=== PATIENT | male | born 1970 | race African-American/Black ===

== ENCOUNTER 2018-11-25 03:52 | Emergency (ER) | payer SELFPAY ==
--- NOTE | 2018-11-25 03:58 | EDM.PDOC ---
<Robert Alonso - Last Filed: 11/25/18 06:48> ED HPI GENERAL MEDICAL PROBLEM - General Stated Complaint: POSSIBLE STROKE Time Seen by Provider: 11/25/18 03:58 Source of Information: Reports: Patient - History of Present Illness INITIAL COMMENTS - FREE TEXT/NARRATIVE: HISTORY AND PHYSICAL: History of present illness: [ Presents via EMS, EMS had called a stroke code-said felt he had left upper extremity weakness However on arrival there were was no physical findings weakness is with blood draws he was readily able to move in retaliation with full strength exhibited perfect purposeful movement when he was willing to move, at times had appeared delirious however would answer questions appropriately seemingly if he felt like responding to the question. His partner had called an ambulance as she was concerned as the patient has been acting like this since Friday proximately 48-72 hours . she has known him for a year and a half , he lives nearby her however is been staying at her house since Friday. She denies any history of illicit drug use or alcoholism does not know his chronic history her medications Patient will not provide a review of systems Review of systems: As per history of present illness and below otherwise all systems reviewed and negative. Past medical history: As per history of present illness and as reviewed below otherwise noncontributory. Surgical history: As per history of present illness and as reviewed below otherwise noncontributory. Social history: No reported history of drug or alcohol abuse. Family history: As per history of present illness and as reviewed below otherwise noncontributory. Physical exam: HEENT: Atraumatic, normocephalic, pupils reactive, negative for conjunctival pallor or scleral icterus, mucous membranes moist, throat clear, neck supple, nontender, trachea midline. No meningeal signs Lungs: Clear to auscultation, breath sounds equal bilaterally, chest nontender. Heart: S1S2, regular, negative for clicks, rubs, or JVD. Abdomen: Soft, nondistended, nontender. Negative for masses or hepatosplenomegaly. Negative for costovertebral tenderness. Pelvis: Stable nontender. Genitourinary: Deferred. Rectal: Deferred. Extremities: Atraumatic, negative for cords or calf pain. Neurovascular unremarkable. Neuro: Awake, alert, oriented. Cranial nerves II through XII unremarkable. Cerebellum unremarkable. Motor and sensory unremarkable throughout. Exam nonfocal. Glaucoma scale 15 Diagnostics: [CBC CMP UA with culture/ blood cultures 2/ lactic acid/influenza EKG Chest 1 view cT head no contrast CT abdomen pelvis no contrast ] Therapeutics: [ normal saline Regular insulin 10 units IV, followed by regular insulin [address] abdomen pelvis pending at this time patient will be signed out to follow CT abdomen, several labs are pending at this time, oncoming physician will redirect after 7 AM as well as final disposition: ] Impression: Fever [ dehydration hyperglycemia Renal insufficiency Hematuria-and urine dipstick Systemic inflammatory response syndrome ] Definitive disposition and diagnosis as appropriate pending reevaluation and review of above. denies pain Pain Score (Numeric/FACES): 0 - Related Data Allergies Allergy/AdvReac Type Severity Reaction Status Date / Time No Known Allergies Allergy Verified 11/25/18 04:20 Course - Vital Signs Last Recorded V/S: Last Vital Signs Temp 98.8 F 11/25/18 08:39 Pulse 102 H 11/25/18 09:28 Resp 15 11/25/18 09:28 BP 132/88 11/25/18 09:28 Pulse Ox 98 11/25/18 09:28 - Orders/Labs/Meds Orders: Active Orders 24 hr Category Date Time Status EKG Documentation Completion [RC] STAT Care 11/25/18 03:55 Active CULTURE BLOOD [BC] Stat Lab 11/25/18 04:00 Ordered CULTURE BLOOD [BC] Stat Lab 11/25/18 04:00 Ordered CULTURE URINE [RM] Stat Lab 11/25/18 05:25 Received OSMOLALITY - SERUM [REF] Stat Lab 11/25/18 04:00 Received OSMOLALITY - URINE Stat Lab 11/25/18 05:25 Received Blood Culture x2 Reflex Set [OM.PC] Stat Oth 11/25/18 03:55 Ordered Labs: Laboratory Tests 11/25/18 11/25/18 11/25/18 Range/Units 04:00 04:00 04:00 WBC 15.98 H (4.0-11.0) K/uL RBC 4.59 (4.50-5.90) M/uL Hgb 12.7 L (13.0-17.0) g/dL Hct 37.4 L (38.0-50.0) % MCV 81.5 (80.0-98.0) fL MCH 27.7 (27.0-32.0) pg MCHC 34.0 (31.0-37.0) g/dL RDW Std Deviation 38.8 (28.0-62.0) fl RDW Coeff of Jose Cruz 13 (11.0-15.0) % Plt Count 301 (150-400) K/uL MPV 12.00 (7.40-12.00) fL Neut % (Auto) 88.7 H (48.0-80.0) % Lymph % (Auto) 7.9 L (16.0-40.0) % [place] % (Auto) 3.3 (0.0-15.0) % Eos % (Auto) 0.0 (0.0-7.0) % Baso % (Auto) 0.1 (0.0-1.5) % Neut # (Auto) 14.2 H (1.4-5.7) K/uL Lymph # (Auto) 1.3 (0.6-2.4) K/uL [place] # (Auto) 0.5 (0.0-0.8) K/uL Eos # (Auto) 0.0 (0.0-0.7) K/uL Baso # (Auto) 0.0 (0.0-0.1) K/uL Nucleated RBC % 0.0 /100WBC Nucleated RBCs # 0 K/uL INR 0.99 ABG pH (7.35-7.45) ABG pCO2 (35-45) mmHG ABG pO2 (75-100) mmHG ABG HCO3 (22-26) mEq/L ABG Total CO2 ABG Base Excess (-2.0-2.0) Lactate 4.8 H (0.20-2.00) mmol/L Sodium (136-148) mmol/L Potassium (3.5-5.1) mmol/L Chloride (98-107) mmol/L Carbon Dioxide (21.0-32.0) mmol/L BUN (7.0-18.0) mg/dL Creatinine (0.8-1.3) mg/dL Est Cr Clr Drug Dosing Estimated GFR (MDRD) ml/min Glucose (74-106) mg/dL Calcium (8.5-10.1) mg/dL Total Bilirubin (0.2-1.0) mg/dL AST (15-37) IU/L ALT (14-63) IU/L Alkaline Phosphatase (46-116) U/L Creatine Kinase (26-308) U/L CK-MB (CK-2) (0-3.6) ng/mL Troponin I (0.000-0.056) ng/mL Total Protein (6.4-8.2) g/dL Albumin (3.4-5.0) g/dL Globulin (2.6-4.0) g/dL Albumin/Globulin Ratio (0.9-1.6) Lipase (73-393) U/L Urine Color Urine Appearance Urine pH (5.0-8.0) Ur Specific [place] (1.001-1.035) Urine Protein (NEGATIVE) mg/dL Urine Glucose (UA) (NEGATIVE) mg/dL Urine Ketones (NEGATIVE) mg/dL Urine Occult Blood (NEGATIVE) Urine Nitrite (NEGATIVE) Urine Bilirubin (NEGATIVE) Urine Urobilinogen (<2.0) EU/dL Ur Leukocyte Esterase (NEGATIVE) Urine RBC (0-2/HPF) Urine WBC (0-5/HPF) Ur Epithelial Cells (NONE-FEW) Urine Bacteria (NEGATIVE) Urine Opiates Screen (NEGATIVE) Ur Oxycodone Screen (NEGATIVE) Urine Methadone Screen (NEGATIVE) Ur Barbiturates Screen (NEGATIVE) Ur Phencyclidine Scrn (NEGATIVE) Ur Amphetamine Screen (NEGATIVE) U Methamphetamines Scrn (NEGATIVE) U Benzodiazepines Scrn (NEGATIVE) U Cocaine Metab Screen (NEGATIVE) U Marijuana (THC) Screen (NEGATIVE) Ethyl Alcohol mg/dL 11/25/18 11/25/18 11/25/18 Range/Units 04:35 05:10 05:10 WBC (4.0-11.0) K/uL RBC (4.50-5.90) M/uL Hgb (13.0-17.0) g/dL Hct (38.0-50.0) % MCV (80.0-98.0) fL MCH (27.0-32.0) pg MCHC (31.0-37.0) g/dL RDW Std Deviation (28.0-62.0) fl RDW Coeff of [place] (11.0-15.0) % Plt Count (150-400) K/uL MPV (7.40-12.00) fL Neut % (Auto) (48.0-80.0) % Lymph % (Auto) (16.0-40.0) % [place] % (Auto) (0.0-15.0) % Eos % (Auto) (0.0-7.0) % Baso % (Auto) (0.0-1.5) % Neut # (Auto) (1.4-5.7) K/uL Lymph # (Auto) (0.6-2.4) K/uL [place] # (Auto) (0.0-0.8) K/uL Eos # (Auto) (0.0-0.7) K/uL Baso # (Auto) (0.0-0.1) K/uL Nucleated RBC % /100WBC Nucleated RBCs # K/uL INR ABG pH 7.393 (7.35-7.45) ABG pCO2 40 (35-45) mmHG ABG pO2 43 L (75-100) mmHG ABG HCO3 24 (22-26) mEq/L ABG Total CO2 22.3 ABG Base Excess -0.5 (-2.0-2.0) Lactate (0.20-2.00) mmol/L Sodium 139 (136-148) mmol/L Potassium 4.3 (3.5-5.1) mmol/L Chloride 101 (98-107) mmol/L Carbon Dioxide 25.2 (21.0-32.0) mmol/L BUN 29 H (7.0-18.0) mg/dL Creatinine 1.7 H (0.8-1.3) mg/dL Est Cr Clr Drug Dosing TNP Estimated GFR (MDRD) 52.0 ml/min Glucose 370 H (74-106) mg/dL Calcium 9.3 (8.5-10.1) mg/dL Total Bilirubin 0.6 (0.2-1.0) mg/dL AST 14 L (15-37) IU/L ALT 14 (14-63) IU/L Alkaline Phosphatase 134 H (46-116) U/L Creatine Kinase 283 (26-308) U/L CK-MB (CK-2) 1.1 (0-3.6) ng/mL Troponin I < 0.050 (0.000-0.056) ng/mL Total Protein 7.5 (6.4-8.2) g/dL Albumin 3.0 L (3.4-5.0) g/dL Globulin 4.5 H (2.6-4.0) g/dL Albumin/Globulin Ratio 0.7 L (0.9-1.6) Lipase 155 (73-393) U/L Urine Color Urine Appearance Urine pH (5.0-8.0) Ur Specific [place] (1.001-1.035) Urine Protein (NEGATIVE) mg/dL Urine Glucose (UA) (NEGATIVE) mg/dL Urine Ketones (NEGATIVE) mg/dL Urine Occult Blood (NEGATIVE) Urine Nitrite (NEGATIVE) Urine Bilirubin (NEGATIVE) Urine Urobilinogen (<2.0) EU/dL Ur Leukocyte Esterase (NEGATIVE) Urine RBC (0-2/HPF) Urine WBC (0-5/HPF) Ur Epithelial Cells (NONE-FEW) Urine Bacteria (NEGATIVE) Urine Opiates Screen (NEGATIVE) Ur Oxycodone Screen (NEGATIVE) Urine Methadone Screen (NEGATIVE) Ur Barbiturates Screen (NEGATIVE) Ur Phencyclidine Scrn (NEGATIVE) Ur Amphetamine Screen (NEGATIVE) U Methamphetamines Scrn (NEGATIVE) U Benzodiazepines Scrn (NEGATIVE) U Cocaine Metab Screen (NEGATIVE) U Marijuana (THC) Screen (NEGATIVE) Ethyl Alcohol <3 mg/dL 11/25/18 11/25/18 Range/Units 05:28 05:28 WBC (4.0-11.0) K/uL RBC (4.50-5.90) M/uL Hgb (13.0-17.0) g/dL Hct (38.0-50.0) % MCV (80.0-98.0) fL MCH (27.0-32.0) pg MCHC (31.0-37.0) g/dL RDW Std Deviation (28.0-62.0) fl RDW Coeff of [place] (11.0-15.0) % Plt Count (150-400) K/uL MPV (7.40-12.00) fL Neut % (Auto) (48.0-80.0) % Lymph % (Auto) (16.0-40.0) % [place] % (Auto) (0.0-15.0) % Eos % (Auto) (0.0-7.0) % Baso % (Auto) (0.0-1.5) % Neut # (Auto) (1.4-5.7) K/uL Lymph # (Auto) (0.6-2.4) K/uL [place] # (Auto) (0.0-0.8) K/uL Eos # (Auto) (0.0-0.7) K/uL Baso # (Auto) (0.0-0.1) K/uL Nucleated RBC % /100WBC Nucleated RBCs # K/uL INR ABG pH (7.35-7.45) ABG pCO2 (35-45) mmHG ABG pO2 (75-100) mmHG ABG HCO3 (22-26) mEq/L ABG Total CO2 ABG Base Excess (-2.0-2.0) Lactate (0.20-2.00) mmol/L Sodium (136-148) mmol/L Potassium (3.5-5.1) mmol/L Chloride (98-107) mmol/L Carbon Dioxide (21.0-32.0) mmol/L BUN (7.0-18.0) mg/dL Creatinine (0.8-1.3) mg/dL Est Cr Clr Drug Dosing Estimated GFR (MDRD) ml/min Glucose (74-106) mg/dL Calcium (8.5-10.1) mg/dL Total Bilirubin (0.2-1.0) mg/dL AST (15-37) IU/L ALT (14-63) IU/L Alkaline Phosphatase (46-116) U/L Creatine Kinase (26-308) U/L CK-MB (CK-2) (0-3.6) ng/mL Troponin I (0.000-0.056) ng/mL Total Protein (6.4-8.2) g/dL Albumin (3.4-5.0) g/dL Globulin (2.6-4.0) g/dL Albumin/Globulin Ratio (0.9-1.6) Lipase (73-393) U/L Urine Color YELLOW Urine Appearance CLEAR Urine pH 5.5 (5.0-8.0) Ur Specific [place] 1.020 (1.001-1.035) Urine Protein 100 H (NEGATIVE) mg/dL Urine Glucose (UA) >=1000 (NEGATIVE) mg/dL Urine Ketones 40 H (NEGATIVE) mg/dL Urine Occult Blood MODERATE H (NEGATIVE) Urine Nitrite NEGATIVE (NEGATIVE) Urine Bilirubin NEGATIVE (NEGATIVE) Urine Urobilinogen 0.2 (<2.0) EU/dL Ur Leukocyte Esterase NEGATIVE (NEGATIVE) Urine RBC 0-2 (0-2/HPF) Urine WBC 0-1 (0-5/HPF) Ur Epithelial Cells RARE (NONE-FEW) Urine Bacteria RARE (NEGATIVE) Urine Opiates Screen NEGATIVE (NEGATIVE) Ur Oxycodone Screen NEGATIVE (NEGATIVE) Urine Methadone Screen NEGATIVE (NEGATIVE) Ur Barbiturates Screen NEGATIVE (NEGATIVE) Ur Phencyclidine Scrn NEGATIVE (NEGATIVE) Ur Amphetamine Screen NEGATIVE (NEGATIVE) U Methamphetamines Scrn NEGATIVE (NEGATIVE) U Benzodiazepines Scrn NEGATIVE (NEGATIVE) U Cocaine Metab Screen NEGATIVE (NEGATIVE) U Marijuana (THC) Screen NEGATIVE (NEGATIVE) Ethyl Alcohol mg/dL Meds: Medications Discontinued Medications Generic Name Dose Route Start Last Admin Trade Name Freq PRN Reason Stop Dose Admin Clonidine HCl 0.2 mg 11/25/18 08:09 11/25/18 08:18 Catapres PO 11/25/18 08:10 0.2 mg ONETIME ONE Administration Sodium Chloride 1,000 mls @ 999 mls/hr 11/25/18 03:59 11/25/18 04:43 Normal Saline IV 11/25/18 04:59 999 mls/hr STAT ONE Administration Sodium Chloride 1,000 mls @ 999 mls/hr 11/25/18 06:04 11/25/18 06:14 Normal Saline IV 11/25/18 07:04 999 mls/hr .Bolus ONE Administration Ceftriaxone Sodium/Dextrose 1 50 mls @ 100 mls/hr 11/25/18 08:53 11/25/18 08: 57 gm/ Premix IV 11/25/18 09:22 100 mls/hr ONETIME ONE Administration Vancomycin HCl 1 gm/ Sodium 250 mls @ 250 mls/hr 11/25/18 08:53 11/25/18 09: 00 Chloride IV 11/25/18 09:52 250 mls/hr ONETIME ONE Administration Insulin Human Regular 10 unit 11/25/18 03:59 11/25/18 04:44 Novolin R IVPUSH 11/25/18 04:00 10 units ONETIME ONE Administration Protocol Insulin Human Regular 5 unit 11/25/18 06:24 02/06/19 07:33 Novolin R SUBCUT 11/25/18 06:25 Not Given NOW STA Protocol Insulin Human Regular 10 unit 11/25/18 07:53 11/25/18 08:10 Novolin R IVPUSH 11/25/18 07:54 Not Given ONETIME ONE Protocol Labetalol HCl 20 mg 11/25/18 08:34 11/25/18 08:38 Normodyne IVPUSH 11/25/18 08:35 20 mg NOW ONE Administration Protocol Lorazepam 1 mg 11/25/18 08:30 11/25/18 08:36 Ativan IVPUSH 11/25/18 08:31 1 mg ONETIME ONE Administration Departure - Departure Disposition: DC/Tfer to [facility] 02 Clinical Impression: Hypertensive crisis Clinical Impression: (Ruled Out): Hypertensive emergency - Discharge Information Referrals: PCP,None [Primary Care Provider] - Forms: ED Department Discharge <Verenice Pinon - Last Filed: 11/25/18 10:58> ED HPI GENERAL MEDICAL PROBLEM - History of Present Illness INITIAL COMMENTS - FREE TEXT/NARRATIVE: Patient was signed out to me by Dr. Alonso from the weight shifter to check CT scans and disposition the patient. While patient was in the ED his blood pressure remained elevated and he had 3 witnessed approximately 1 minute seizures where he stiffened and had a deviation of his eyes to the right or upwards. Patient believes he's been having seizures for the past few days after he was informed that he had seizures in the ED. Dr. Ralph was consulted and there were no ICU beds available therefore patient was transferred to [facility]. Dr. Garay accepts patient did receive Ativan, labetalol, clonidine Rocephin and vancomycin while in the ED. ED ROS GENERAL - Review of Systems Review Of Systems: ROS reveals no pertinent complaints other than HPI. ED EXAM, GENERAL - Physical Exam Exam: See Below (See history of present illness) Departure - Departure Time of Disposition: 10:58 Condition: Good - Discharge Information *PRESCRIPTION DRUG MONITORING PROGRAM REVIEWED*: No *COPY OF PRESCRIPTION DRUG MONITORING REPORT IN PATIENT LANETTE: No
[2018-11-25] MEDS ORDERED: Sodium Chloride 0.9% 1,000 ML IV ONE ×2 (03:59→06:04)
[2018-11-25] MEDS ORDERED: Insulin Regular, Human 100 Units/ML 10 ML Vial IVPUSH ONE ×2 (03:59→07:53)
--- NOTE | 2018-11-25 04:39 | CR ---
INDICATION: Altered mental status. COMPARISON: None available. FINDINGS: An erect single view of the chest was obtained at 0410 hours. The lungs are clear. No focal or diffuse infiltrates are present. The heart is normal in size. The mediastinum is normal in appearance. The osseous structures are normal in appearance for the patient`s age. IMPRESSION: Normal chest single view. Dictated by Giorgio Yan MD @ Nov 25 2018 4:37AM Signed by Dr. Giorgio Yan @ Nov 25 2018 4:37AM
--- NOTE | 2018-11-25 04:39 | CT ---
INDICATION: Altered mental status. Stroke protocol. COMPARISON: None available. TECHNIQUE: CT examination of the head was performed with 3 mm thick axial sections without intravenous contrast. Images were obtained from the vertex of the skull through the skull base, and I examined the images with the brain and bone windows. Please note that all CT scans at this facility use dose modulation, iterative reconstruction, and/or weight-based dosing when appropriate to reduce radiation dose to as low as reasonably achievable. FINDINGS: : The brain is normal in appearance for the patient`s age on today`s study, with no sign of mass lesion, mass effect, hemorrhage, or edema. The ventricles and sulci are normal in appearance for the patient`s age. The visualized portions of the orbits are normal in appearance. The visualized portions of the paranasal sinuses and mastoids are clear. The osseous structures are normal in their appearance with no sign of abnormality in the skull base or calvarium. IMPRESSION: Normal noncontrast CT of the head for the patient`s age. Please note that all CT scans at this facility use dose modulation, iterative reconstruction, and/or weight-based dosing when appropriate to reduce radiation dose to as low as reasonably achievable. Dictated by Giorgio Yan MD @ Nov 25 2018 4:34AM Signed by Dr. Giorgio Yan @ Nov 25 2018 4:36AM
[2018-11-25 05:45] LABS: CHLORIDE,CL 101 mmol/L (98-107); SODIUM,NA 139 mmol/L (136-148)
[2018-11-25] MEDS ORDERED: Insulin Regular, Human 100 Units/ML 10 ML Vial SUBCUT STA (06:24)
--- NOTE | 2018-11-25 07:09 | CT ---
INDICATION: Abdominal pain. COMPARISON: None. TECHNIQUE: CT abdomen and pelvis without intravenous or oral contrast; coronal and sagittal reformats. FINDINGS: Significant respiratory motion compromising the quality of the study. No gross pathology at the lung bases. No evidence of pleural effusion. Normal size cardiac silhouette without any evidence of pericardial effusion. No focal hepatic or splenic pathology. No pancreatic pathology. Gallbladder is unremarkable. No adrenal pathology. No kidney stones or obstructive uropathy. No retroperitoneal lymphadenopathy. No evidence of abdominal or pelvic ascites. Normal appendix. CT study of the pelvis is unremarkable . No pneumoperitoneum. No evidence of intestinal obstruction. IMPRESSION: 1. Negative CT abdomen and pelvis without intravenous or oral contrast. 2. Significant respiratory motion compromising the quality of the study. Please note that all CT scans at this facility use dose modulation, iterative reconstruction, and/or weight-based dosing when appropriate to reduce radiation dose to as low as reasonably achievable. Dictated by Marilyn Phan MD @ Nov 25 2018 7:05AM Signed by Dr. Marilyn Phan @ Nov 25 2018 7:08AM
[2018-11-25] MEDS ORDERED: cloNIDine 0.1 MG Tab PO ONE (08:09)
[2018-11-25] MEDS ORDERED: LORazepam 2 MG/ML SDV IVPUSH ONE (08:30)
[2018-11-25] MEDS ORDERED: Labetalol 20 MG/4 ML Syringe IVPUSH ONE (08:34)
[2018-11-25] MEDS ORDERED: cefTRIAXone 1 GM in Premix Bag 1 BAG IV ONE (08:53)
== END 2018-11-25 09:45 ==
LOC: MW.ED 03:52
DX: I16.9 Hypertensive crisis, unspecified (principal); R73.9 Hyperglycemia, unspecified; E86.0 Dehydration; R65.10 Systemic inflammatory response syndrome (SIRS) of non-infectious origin without acute organ dysfunction; N28.9 Disorder of kidney and ureter, unspecified; I10 Essential (primary) hypertension; R31.9 Hematuria, unspecified
CPT/HCPCS: 36415; 36600; 70450; 71045; 74176; 80053; 80305; 81001; 82550; 82553; 82803; 83605; 83690; 83930; 83935; 84484; 85025; 85610; 87086; 87804; 93005; 96361; 96365; 96367; 96375; 99285; A9270; G0480; J0696; J2060; J3370; J3490; J7040; J7050; J1815-GY

== ENCOUNTER 2019-01-16 21:16 | Emergency (ER) | payer OTHER ==
--- NOTE | 2019-01-16 22:37 | EDM.PDOC ---
<Maximiliano Soriano - Last Filed: 01/17/19 00:59> ED HPI GENERAL MEDICAL PROBLEM - General Chief Complaint: Skin Complaint Stated Complaint: PT HAS RASH Time Seen by Provider: 01/16/19 21:33 - Related Data Allergies Allergy/AdvReac Type Severity Reaction Status Date / Time No Known Allergies Allergy Verified 01/16/19 21:29 Home Meds: Home Meds Losartan Potassium 1 tab PO BID 01/16/19 [History] Metoprolol Succinate [Kapsp[place] Sprinkle] 1 tab PO BID 01/16/19 [History] Phenytoin Sodium Extended [Dilantin] 200 mg PO BID 01/16/19 [History] Potassium Chloride [Klor-Con 10] 2 tab PO BID 01/16/19 [History] Terazosin [Hytrin] 10 mg PO BEDTIME 01/16/19 [History] Verapamil HCl [Verapamil Sr] 2 cap PO DAILY 01/16/19 [History] hydroCHLOROthiazide [Hydrochlorothiazide] 1 tab PO DAILY 01/16/19 [History] levETIRAcetam [Levetiracetam ER] 1,500 mg PO BID 01/16/19 [History] metFORMIN HCl [Metformin HCl] 1 tab PO BID 01/16/19 [History] Course - Vital Signs Text/Narrative:: Patient's emergency department course unremarkable he's discharged home keep his scheduled follow-up appointment continue current meds return as needed as discussed he uses hydrocortisone cream as directed for his rash Last Recorded V/S: Last Vital Signs Temp 36.4 C 01/17/19 00:40 Pulse 102 H 01/17/19 00:40 Resp 18 01/17/19 00:40 BP 160/104 H 01/17/19 00:40 Pulse Ox 97 01/17/19 00:40 - Orders/Labs/Meds Orders: Active Orders 24 hr Category Date Time Status Blood Glucose Check, Bedside [RC] ONETIME Care 01/16/19 23:11 Active Labs: Laboratory Tests 01/16/19 01/16/19 01/16/19 Range/Units 20:50 22:29 22:29 WBC 8.18 (4.0-11.0) K/uL RBC 4.10 L (4.50-5.90) M/uL Hgb 11.4 L (13.0-17.0) g/dL Hct 32.9 L (38.0-50.0) % MCV 80.2 (80.0-98.0) fL MCH 27.8 (27.0-32.0) pg MCHC 34.7 (31.0-37.0) g/dL RDW Std Deviation 40.8 (28.0-62.0) fl RDW Coeff of Jose Cruz 14 (11.0-15.0) % Plt Count 248 (150-400) K/uL MPV 10.80 (7.40-12.00) fL Neut % (Auto) 62.2 (48.0-80.0) % Lymph % (Auto) 25.8 (16.0-40.0) % [place] % (Auto) 8.7 (0.0-15.0) % Eos % (Auto) 2.7 (0.0-7.0) % Baso % (Auto) 0.6 (0.0-1.5) % Neut # (Auto) 5.1 (1.4-5.7) K/uL Lymph # (Auto) 2.1 (0.6-2.4) K/uL [place] # (Auto) 0.7 (0.0-0.8) K/uL Eos # (Auto) 0.2 (0.0-0.7) K/uL Baso # (Auto) 0.1 (0.0-0.1) K/uL Nucleated RBC % 0.0 /100WBC Nucleated RBCs # 0 K/uL Sodium 133 L (136-148) mmol/L Potassium 5.0 (3.5-5.1) mmol/L Chloride 96 L (98-107) mmol/L Carbon Dioxide 27.6 (21.0-32.0) mmol/L BUN 31 H (7.0-18.0) mg/dL Creatinine 1.8 H (0.8-1.3) mg/dL Est Cr Clr Drug Dosing TNP Estimated GFR (MDRD) 48.6 ml/min Glucose 484 H (74-106) mg/dL Calcium 8.9 (8.5-10.1) mg/dL Total Bilirubin 0.3 (0.2-1.0) mg/dL AST 10 L (15-37) IU/L ALT 29 (14-63) IU/L Alkaline Phosphatase 207 H (46-116) U/L Total Protein 8.0 (6.4-8.2) g/dL Albumin 3.3 L (3.4-5.0) g/dL Globulin 4.7 H (2.6-4.0) g/dL Albumin/Globulin Ratio 0.7 L (0.9-1.6) Urine Color YELLOW Urine Appearance HAZY Urine pH 5.0 (5.0-8.0) Ur Specific Wray >= 1.030 (1.001-1.035) Urine Protein 100 H (NEGATIVE) mg/dL Urine Glucose (UA) >=1000 (NEGATIVE) mg/dL Urine Ketones NEGATIVE (NEGATIVE) mg/dL Urine Occult Blood SMALL H (NEGATIVE) Urine Nitrite NEGATIVE (NEGATIVE) Urine Bilirubin NEGATIVE (NEGATIVE) Urine Urobilinogen 0.2 (<2.0) EU/dL Ur Leukocyte Esterase NEGATIVE (NEGATIVE) Urine RBC 1-3 (0-2/HPF) Urine WBC 0-2 (0-5/HPF) Ur Epithelial Cells RARE (NONE-FEW) Urine Bacteria FEW (NEGATIVE) Meds: Medications Discontinued Medications Generic Name Dose Route Start Last Admin Trade Name Freq PRN Reason Stop Dose Admin Sodium Chloride 1,000 mls @ 999 mls/hr 01/16/19 23:01 01/16/19 23:10 Normal Saline IV 01/17/19 00:01 999 mls/hr .Bolus ONE Administration Departure - Departure Time of Disposition: 00:59 Disposition: Home, Self-Care 01 Clinical Impression: Rash in adult, Diabetes - Discharge Information Instructions: Rash, [id number] Referrals: PCP,None [Primary Care Provider] - Forms: ED Department Discharge Additional Instructions: The following information is given to patients seen in the emergency department who are being discharged to home. This information is to outline your options for follow-up care. We provide all patients seen in our emergency department with a follow-up referral. The need for follow-up, as well as the timing and circumstances, are variable depending upon the specifics of your emergency department visit. If you don't have a primary care physician on staff, we will provide you with a referral. We always advise you to contact your personal physician following an emergency department visit to inform them of the circumstance of the visit and for follow-up with them and/or the need for any referrals to a consulting specialist. The emergency department will also refer you to a specialist when appropriate. This referral assures that you have the opportunity for followup care with a specialist. All of these measure are taken in an effort to provide you with optimal care, which includes your followup. Under all circumstances we always encourage you to contact your private physician who remains a resource for coordinating your care. When calling for followup care, please make the office aware that this follow-up is from your recent emergency room visit. If for any reason you are refused follow-up, please contact the [facility] emergency department at and asked to speak to the emergency department charge nurse. Continue current medications follow-up with scheduled appointment as discussed return as needed as discussed <Rosa Patel - Last Filed: 01/17/19 15:16> ED HPI GENERAL MEDICAL PROBLEM - General Source of Information: Reports: Patient History Limitations: Reports: No Limitations - History of Present Illness INITIAL COMMENTS - FREE TEXT/NARRATIVE: HISTORY AND PHYSICAL: History of present illness: Patient is a 48-year-old male presents to the ED today with concerns for a rash in his armpit, tremors, and his glucose. Patient states he was recently released from [facility] in [place] for seizure-like activity. Patient states that since then he has had this onset of tremors and has had difficulty maintaining his glucose levels. Patient states 3 days ago he started developing a "pimple" in his armpit that spread across his armpit, chest, and arm. Patient states that since his discharge, he is on a wide variety of medications that he feels could likely related to his symptoms. Patient states that since starting these medications is when he noticed the development of this. Patient does have a history of diabetes. Patient denies fever, chills, chest pain, shortness of breath, or cough. Denies headache, neck stiff ness, change in vision, syncope, or near syncope. Denies nausea, vomiting, abdominal pain, diarrhea, constipation, or dysuria. Has not noted any blood in urine or stool. Patient has been eating and drinking appropriately. Patient denies any other health history other than stated above. Review of systems: As per history of present illness and below otherwise all systems reviewed and negative. Past medical history: As per history of present illness and as reviewed below otherwise noncontributory. Surgical history: As per history of present illness and as reviewed below otherwise noncontributory. Social history: See social history for further information Family history: As per history of present illness and as reviewed below otherwise noncontributory. Physical exam: General: Patient is alert, oriented, and in no acute distress. He is sitting comfortably on exam table. HEENT: Atraumatic, normocephalic, pupils equal and reactive bilaterally, negative for conjunctival pallor or scleral icterus, mucous membranes moist, TMs normal bilaterally, throat clear, neck supple, nontender, trachea midline. No drooling or trismus noted. No meningeal signs. No hot potato voice noted. Lungs: Clear to auscultation, breath sounds equal bilaterally, chest nontender. Heart: S1S2, regular rate and rhythm without overt murmur Abdomen: Soft, nondistended, nontender. Negative for masses or hepatosplenomegaly. Negative for costovertebral tenderness. Pelvis: Stable nontender. Genitourinary: Deferred. Rectal: Deferred. Skin: There is a maculopapular rash of the right axilla that spreads up into the pectoral region of the right arm, down the right arm, and into the right scapular region on the back. rash is non-painful to the touch. Extremities: The skin. Atraumatic, negative for cords or calf pain. Neurovascular unremarkable. Neuro: Awake, alert, oriented. patient does have some stuttering when asked questions. Patient also has tremor of the hands bilaterally with movement. Cranial nerves II through XII unremarkable. Exam nonfocal. Notes: on exam, patient does have some stuttering and tremors. Patient also has a nonspecific rash in the right axilla. Lab work today. Dr. Soriano is assuming care of this patient. He will follow all remaining diagnostics and disposition. Diagnostics: CBC, CMP, [employer]A [employer]: Prescription: Impression: Rash, nonspecific Elevated glucose reading Plan: Definitive disposition and diagnosis as appropriate pending reevaluation and review of above. right axilla Pain Score (Numeric/FACES): 6 Past Medical History HEENT History: Reports: None Cardiovascular History: Reports: Hypertension Respiratory History: Reports: None Gastrointestinal History: Reports: None Genitourinary History: Reports: None Musculoskeletal History: Reports: None Neurological History: Reports: None Psychiatric History: Reports: None Endocrine/Metabolic History: Reports: Diabetes, Type II Hematologic History: Reports: None Immunologic History: Reports: None Oncologic (Cancer) History: Reports: None Dermatologic History: Reports: None - Infectious Disease History Infectious Disease History: Reports: Meningitis - Past Surgical History Male Surgical History: Reports: None Other Musculoskeletal Surgeries/Procedures:: leg surgery Social & Family History - Family History Family Medical History: Noncontributory - Tobacco Use Smoking Status *Q: Never Smoker - Caffeine Use Caffeine Use: Reports: None - Recreational Drug Use Recreational Drug Use: No ED ROS GENERAL - Review of Systems Review Of Systems: ROS reveals no pertinent complaints other than HPI. ED EXAM, SKIN/RASH Exam: See Below (see dictation) Course - Orders/Labs/Meds Orders: Active Orders 24 hr Category Date Time Status Blood Glucose Check, Bedside [RC] ONETIME Care 01/16/19 23:11 Active Labs: Laboratory Tests 01/16/19 01/16/19 01/16/19 Range/Units 20:50 22:29 22:29 WBC 8.18 (4.0-11.0) K/uL RBC 4.10 L (4.50-5.90) M/uL Hgb 11.4 L (13.0-17.0) g/dL Hct 32.9 L (38.0-50.0) % MCV 80.2 (80.0-98.0) fL MCH 27.8 (27.0-32.0) pg MCHC 34.7 (31.0-37.0) g/dL RDW Std Deviation 40.8 (28.0-62.0) fl RDW Coeff of Jose Cruz 14 (11.0-15.0) % Plt Count 248 (150-400) K/uL MPV 10.80 (7.40-12.00) fL Neut % (Auto) 62.2 (48.0-80.0) % Lymph % (Auto) 25.8 (16.0-40.0) % [place] % (Auto) 8.7 (0.0-15.0) % Eos % (Auto) 2.7 (0.0-7.0) % Baso % (Auto) 0.6 (0.0-1.5) % Neut # (Auto) 5.1 (1.4-5.7) K/uL Lymph # (Auto) 2.1 (0.6-2.4) K/uL [place] # (Auto) 0.7 (0.0-0.8) K/uL Eos # (Auto) 0.2 (0.0-0.7) K/uL Baso # (Auto) 0.1 (0.0-0.1) K/uL Nucleated RBC % 0.0 /100WBC Nucleated RBCs # 0 K/uL Sodium 133 L (136-148) mmol/L Potassium 5.0 (3.5-5.1) mmol/L Chloride 96 L (98-107) mmol/L Carbon Dioxide 27.6 (21.0-32.0) mmol/L BUN 31 H (7.0-18.0) mg/dL Creatinine 1.8 H (0.8-1.3) mg/dL Est Cr Clr Drug Dosing TNP Estimated GFR (MDRD) 48.6 ml/min Glucose 484 H (74-106) mg/dL Calcium 8.9 (8.5-10.1) mg/dL Total Bilirubin 0.3 (0.2-1.0) mg/dL AST 10 L (15-37) IU/L ALT 29 (14-63) IU/L Alkaline Phosphatase 207 H (46-116) U/L Total Protein 8.0 (6.4-8.2) g/dL Albumin 3.3 L (3.4-5.0) g/dL Globulin 4.7 H (2.6-4.0) g/dL Albumin/Globulin Ratio 0.7 L (0.9-1.6) Urine Color YELLOW Urine Appearance HAZY Urine pH 5.0 (5.0-8.0) Ur Specific Wray >= 1.030 (1.001-1.035) Urine Protein 100 H (NEGATIVE) mg/dL Urine Glucose (UA) >=1000 (NEGATIVE) mg/dL Urine Ketones NEGATIVE (NEGATIVE) mg/dL Urine Occult Blood SMALL H (NEGATIVE) Urine Nitrite NEGATIVE (NEGATIVE) Urine Bilirubin NEGATIVE (NEGATIVE) Urine Urobilinogen 0.2 (<2.0) EU/dL Ur Leukocyte Esterase NEGATIVE (NEGATIVE) Urine RBC 1-3 (0-2/HPF) Urine WBC 0-2 (0-5/HPF) Ur Epithelial Cells RARE (NONE-FEW) Urine Bacteria FEW (NEGATIVE) Meds: Medications Discontinued Medications Generic Name Dose Route Start Last Admin Trade Name Freq PRN Reason Stop Dose Admin Sodium Chloride 1,000 mls @ 999 mls/hr 01/16/19 23:01 01/16/19 23:10 Normal Saline IV 01/17/19 00:01 999 mls/hr .Bolus ONE Administration
[2019-01-16 22:56] LABS: CHLORIDE,CL 96 mmol/L (98-107); SODIUM,NA 133 mmol/L (136-148)
[2019-01-16] MEDS ORDERED: Sodium Chloride 0.9% 1,000 ML IV ONE (23:01)
== END 2019-01-17 00:40 | disposition home or self-care (01) ==
LOC: MW.ED 21:16
DX: R23.8 Other skin changes (principal); E11.9 Type 2 diabetes mellitus without complications; I10 Essential (primary) hypertension; Z79.899 Other long term (current) drug therapy; Z79.84 Long term (current) use of oral hypoglycemic drugs
CPT/HCPCS: 36415; 80053; 81001; 85025; 96360; 99283; J7040